=== PATIENT | male | born 1960 | race Caucasian/White ===

== ENCOUNTER → 2019-09-04 08:10 | Outpatient (CLI) | payer BC, SELFPAY ==
--- NOTE | ~2019-09-04 | MR_ITS ---
EXAMINATION: MR ankle LT wo con DATE: 09/04/2019 09:18 INDICATION: Left ankle pain. TECHNIQUE: Magnetic resonance imaging (MRI) of the left ankle was performed without intravenous contr ast. Sequences included axial, coronal, and sagittal PD-weighted FSE and STIR FSE. COMPARISON: None. FINDINGS: Medial ankle ligaments: There are changes of prior sprain of superficial component of the deltoid ligament characterized by t hickening and increased signal intensity. The deep component of the deltoid ligament is intact. Lateral ankle ligaments: There are changes of prior sprains of anterior talofibular ligament, anterior tibiofibular ligament, and calcaneofibular ligament characterized by thickening and increased signal intensity. Posterior ta lofibular ligament and posterior tibiofibular ligament are normal. Tendons: The medial and anterior ankle tendons are normal. The peroneal tendons and Achilles tendon are normal . Plantar fascia: There is thickening of central band of plantar fascia, consistent with fasciitis. There is an entheso phyte at the calcaneal attachment. Bones/other: Bone alignment is normal. There is plate and screw fixation of distal fibula. There is at least deep partial thickness cartilage loss in the medial ankle joint. There is severe osteoarthritis of talonav icular joint including full-thickness cartilage loss, subchondral edema-like marrow signal intensity, and osteophytes. Fluid: There is a small subtalar joint effusion. IMPRESSION: 1. Severe osteoarthritis of talonavicular joint and moderate chondrosis of tibiotalar joint. 2. Plantar fasciitis. 3. Changes of prior medial and lateral ankle sprains. Reviewed, dictated and finalized at location A. IMPRESSION: 1. Severe osteoarthritis of talonavicular joint and moderate chondrosis of tibi otalar joint. 2. Plantar fasciitis. 3. Changes of prior medial and lateral ankle sprains.
== END ==
PROVIDERS: PCP Family Medicine
DX: M19.072 Primary osteoarthritis, left ankle and foot (principal); M72.2 Plantar fascial fibromatosis
CPT/HCPCS: 73721

== ENCOUNTER 2019-12-20 08:06 | Outpatient (CLI) | payer BC, SELFPAY ==
--- NOTE | ~2019-12-20 | CT_ITS ---
EXAMINATION: CT abdomen pelvis wo con DATE: 12/20/2019 08:35 INDICATION: Left lower quadrant pain. Diverticulitis. TECHNIQUE: Computed tomography (CT) of the abdomen and pelvis was performed without intravenous contr ast. The dose-length product was 1365.65 mGy-cm. Automated exposure control and iterative reconstruct ion technique were employed. COMPARISON: None. FINDINGS: Lung bases are unremarkable. Heart size normal. No significant pleural or pericardial effus ion. The liver, spleen, pancreas, adrenal glands and right kidney are unremarkable. There is a 2 cm exophy tic left renal cyst. No hydronephrosis. Gallbladder is present. 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 There is mild thickening of the proximal sigmoid colon with surrounding inflammation and diverticu la, consistent with acute diverticulitis. No evidence for perforation or abscess. No free air or free fluid. There is atherosclerosis. No lymphadenopathy. Moderate lumbar spondylosis with grade 2 spondy lolisthesis at L5-S1 secondary to spondylolysis. IMPRESSION: 1. Acute uncomplicated diverticulitis proximal sigmoid colon. Reviewed, dictated and finalized at location B.
== END 2019-12-20 08:07 | disposition home or self-care (01) ==
PROVIDERS: PCP Family Medicine; Visit Provider Family Medicine
DX: R10.9 Unspecified abdominal pain (principal); K57.92 Diverticulitis of intestine, part unspecified, without perforation or abscess without bleeding
CPT/HCPCS: 74176

== ENCOUNTER 2021-04-02 08:44 | Outpatient (CLI) | payer BC, SELFPAY ==
--- NOTE | 2021-04-02 08:54 | ECHO_ITS ---
Patient Info Name: Krzysztof Tovar Age: 60 years : 1960 Gender: Male Ht: 76 in Wt: 270 lbs BSA: 2.59 m2 HR: 67 bpm BP: 132 / 84 mmHg Technical Quality: Fair Exam Date: 04/02/2021 8:58 AM Exam Location: [facility] Patient Status: Outpatient Admit Date: 04/02/2021 Staff Ordering Physician: Sukhdev Mtz MD Therapist Physical: Floridalma Ferguson RDCS Attending Provider: Sukhdev Mtz MD Referring Physician: Smith VICENTE; Exam Type: CA echo doppler color flow Study Info Indications R01.1 - Cardiac murmur, unspecified Complete two-dimensional, color flow and Doppler transthoracic echocardiogram is performed. Summary 1. Complete two-dimensional, color flow and Doppler transthoracic echocardiogram is performed. 2. Left ventricular chamber dimension is normal. 3. Left ventricular systolic function is normal, estimated at 60-65%. 4. There is mildly increased left ventricular wall thickness. 5. The left ventricular diastolic function is grade I diastolic dysfunction. 6. E/e' 5 is not elevated. 7. Left atrial chamber dimension is mildly enlarged. 8. The aortic valve is not well visualized. 9. There is severe aortic valve stenosis based on visual estimation. However, measurements show a peak velocity of 201 cm/s, mean gradient of 7 mmHg, and aortic valve area of 2.3 cm2. Recommend BHARATHI for further evaluation if clinically indicated. 10. There is severe aortic valve sclerosis. 11. There is mild aortic valve regurgitation. 12. No pulmonary hypertension, estimated pulmonary arterial systolic pressure is 27 mmHg. 13. The aortic root size at the sinus of Valsalva is mildly dilated at 4.3 cm. Left Ventricle E/e' 5 is not elevated. Left ventricular chamber dimension is normal. Left ventricular systolic function is normal, estimated at 60-65%. There is mildly increased left ventricular wall thickness. The left ventricular diastolic function is grade I diastolic dysfunction. Right Ventricle Right ventricular chamber dimension is normal. Right ventricular systolic function is normal. Left Atria Left atrial chamber dimension is mildly enlarged. Right Atria Right atrial chamber dimension is normal. Aortic Valve There is severe aortic valve stenosis based on visual estimation. However, measurements show a peak velocity of 201 cm/s, mean gradient of 7 mmHg, and aortic valve area of 2.3 cm2. Recommend BHARATHI for further evaluation if clinically indicated. The aortic valve is not well visualized. There is severe aortic valve sclerosis. There is mild aortic valve regurgitation. Pulmonic Valve There is no pulmonic regurgitation. Mitral Valve There is no mitral valve stenosis. There is no mitral valve regurgitation. Tricuspid Valve There is no tricuspid valve regurgitation. No pulmonary hypertension, estimated pulmonary arterial systolic pressure is 27 mmHg. Pericardium/Pleural There is no pericardial effusion. Inferior Vena Cava Normal inferior vena cava with >50% collapse upon inspiration consistent with normal right atrial pressure, 5 mmHg. Aorta The aortic root size at the sinus of Valsalva is mildly dilated at 4.3 cm. Left Ventricular Outflow Tract Name Value Normal LVOT 2D LVOT Di
== END 2021-04-02 08:45 | disposition home or self-care (01) ==
LOC: ANHCARD 08:44
PROVIDERS: PCP Family Medicine; Visit Provider Family Medicine
DX: R01.1 Cardiac murmur, unspecified (principal); I35.2 Nonrheumatic aortic (valve) stenosis with insufficiency
CPT/HCPCS: 93306

== ENCOUNTER 2021-08-03 01:43 | Day surgery (SDC) | payer BC, SELFPAY ==
[2021-08-02 15:32] VITALS: BMI 34.1
[2021-08-03] VITALS (25 sets, daily range): BP systolic 120–194; BP diastolic 77–123; PULSE 48–82; RESP 10–22; TEMP 36.2; O2SAT 95–99; BMI 34.1
--- NOTE | 2021-08-03 08:41 | WPDMODSED ---
Moderate Sedation Note-Pt Data Patient Data Allergies Allergy/AdvReac Type Severity Reaction Status Date / Time No Known Allergies Allergy Verified 08/03/21 07:32 Home Medications Medication Instructions Recorded Confirmed Type tramadol 50 mg tablet 50 mg PO Q6H PRN #60 tablet 11/10/20 08/03/21 Rx etodolac 500 mg tablet 500 mg PO BID #180 tablet 06/16/21 08/03/21 Rx zolpidem 5 mg tablet 5 mg PO .QHS #30 tablet 06/16/21 08/03/21 Rx cyclobenzaprine 10 mg PO HS 08/02/21 08/03/21 History ketorolac 1 drp OPHTHALMIC (EYE) TID 08/02/21 08/03/21 History metoprolol tartrate 25 mg PO BID 08/02/21 08/03/21 History ofloxacin 1 drp OPHTHALMIC (EYE) TID 08/02/21 08/03/21 History prednisolone acetate 1 drp OPHTHALMIC (EYE) TID 08/02/21 08/03/21 History Acidophilus-Pectin 10 mg PO DAILY 08/03/21 08/03/21 History Adults Multivitamin 1 tablet PO DAILY 08/03/21 08/03/21 History Glucosamine 400 mg PO TID 08/03/21 08/03/21 History [place] 3 1,000 mg PO DAILY 08/03/21 08/03/21 History acetaminophen 650 mg PO PRN 08/03/21 08/03/21 History cholecalciferol (vitamin D3) 5,000 unit PO DAILY 08/03/21 08/03/21 History coenzyme Q10 100 mg PO DAILY 08/03/21 08/03/21 History docusate sodium 100 mg PO BID 08/03/21 08/03/21 History hydrocodone-acetaminophen 10 - 352 mg PO PRN 08/03/21 08/03/21 History red yeast rice 600 mg PO DAILY 08/03/21 08/03/21 History selenium 200 mcg PO DAILY 08/03/21 08/03/21 History trace elements Cr-Cu-Mn-Zn 1 mcg PO DAILY 08/03/21 08/03/21 History tramadol 50 mg PO Q6H 08/03/21 08/03/21 History ftsquhn-nywx-clmpu-oreg-capryl 400 mg PO DAILY 08/03/21 08/03/21 History vitamin B complex 1 cap PO DAILY 08/03/21 08/03/21 History zolpidem 5 mg PO HS 08/03/21 08/03/21 History Current Medications: Active Medications Sodium Chloride (Normal Saline Iv) 500 mls @ 100 mls/hr IV CONT .Q5H [facility] Sedation/Anesthesia: No previous sedation/anesthesia problems (including family history). [facility] Past Medical History Medical History (Updated 07/14/21 @ 10:07 by Sukhdev Mtz MD) Arthrosis of ankle CAD (coronary artery disease) Obesity (BMI 30.0-34.9) Surgical History Surgical History (Updated 09/28/20 @ 10:04 by Sukhdev Mtz MD) H/O foot surgery Hx of arthrodesis Family History Family History Father Family history of malignant neoplasm of brain Social History Social History Smoking status: Never smoker Second hand tobacco smoke exposure: Yes Alcohol intake: current Drinks per week: 2 Alcohol use details: social use Living arrangements: with family Spiritual care concerns: No Mod Sed Physical Exam Physical Exam Pre Procedural Exam: Normal: Airway Hours since solid foods: 10 Hours since liquid intake: 10 Mallampati Classification: class II Internal Medicine - PN: Obj Da Vital Signs Vital Signs: Vital Signs - 24 hr 08/03/21 07:33 Temperature 36.2 C L Pulse Rate 58 L Respiratory Rate 12 Blood Pressure 152/98 H Pulse Oximetry 98 Meds/Results Medications: Active Medications Generic Name Dose Route Start Last Admin Trade Name Freq PRN Reason Stop Dose Admin Sodium Chloride 500 mls @ 100 mls/hr 08/03/21 07:00 Normal Saline Iv IV CONT .Q5H [facility] ASA Classification/Sedation ASA Classification/Sedation ASA Class: III Emergent: No Risks: Risks, benefits and alternatives explained and patient/family accepted plan for sedation. Patient re-evaluated immediately prior to sedation.
--- NOTE | 2021-08-03 08:41 | WPDHPUPDATE1 ---
History and Physical Update Update Date/Time: 08/03/21 08:41 History and Physical has been reviewed, including an updated exam of the patient. There are NO changes in the patient's condition. Risks, benefits, and alternatives have been discussed and questions answered. Patient agrees to proceed with procedure.
--- NOTE | 2021-08-03 10:10 | WPDCARDPROC ---
Cardiac Cath Procedure Note Date of procedure:: 08/03/21 Performing physician:: Calvin Pitt MD Procedure Procedure note:: CARDIAC CATHETERIZATION AND PERCUTANEOUS CORONARY INTERVENTION REPORT DATE OF PROCEDURE: 08/03/2021 INDICATION FOR PROCEDURE: chest pain, abnormal MPI BRIEF CLINICAL HISTORY: 61-year-old male with bicuspid aortic valve with mild stenosis based on previous BHARATHI, aortic root dilation, PVCs. Patient was referred for cardiac catheterization in the setting of exertional chest Pain and abnormal MPI. Patient's MPI from 07/12/2021 reportedly showed large fixed defect involving inferior and inferolateral truong consistent with prior LA; small amount of sergio-infarct ischemia, LVEF 43% with inferior wall hypokinesis. Benefits and risks of the procedure were discussed with the patient in depth, and informed consent was obtained prior to the procedure. Risks of the procedure include but are not limited to vascular complications including groin hematoma, retroperitoneal bleed, vessel perforation; periprocedural LA, cardiac arrhythmias, stroke, contrast induced nephropathy, and . After discussing all the benefits, risks and alternatives, patient was willing to proceed with the procedure. PROCEDURES PERFORMED: 1. Selective left and right coronary angiogram 2. IFR of LAD 3. Moderate sedation-CPT code 12824 MODERATE SEDATION: Midazolam 2 mg; fentanyl 50 mcg. Start time 0920 , Stop time 0958 ; Total wdir-jx-adbr time 38 minutes; Floridalma Tucker RN was trained observer for moderate sedation. ACCESS SITE: Right common femoral artery PROCEDURE NOTE: After obtaining informed consent, patient was brought to catheterization lab and prepped and draped in a usual sterile manner. After local anesthesia with lidocaine, right common femoral artery access was taken with micropuncture needle followed by insertion of a 5 [place] sheath. Due to aortic root dilation, there was difficulty in engaging the coronary arteries. After multiple catheters, selective left coronary angiogram was performed using 5 [place] JL 6 diagnostic catheter. Selective right coronary angiogram was performed using 5 [place] JR4 catheter . There was difficulty in advancing the wire through the stenotic bicuspid valve. IFR findings are described below. Patient tolerated procedure well without any immediate procedure related complications. FINDINGS: LEFT MAIN CORONARY: The left main coronary artery is a medium to large caliber vessel, no angiographically significant focal stenosis. LEFT ANTERIOR DESCENDING ARTERY: The LAD is a large caliber vessel in the proximal segment with diffuse mild irregularities; about 50-60% focal stenosis is seen in the proximal-mid segment; the mid segment has mild diffuse plaque. The vessel tapers distally and reaches LV apex. Diagonal branches are small caliber vessels. LEFT CIRCUMFLEX ARTERY: The LCX is the medium to large caliber, tortuous vessel with about 50% stenosis at the ostium. The mid segment is very tortuous with mild diffuse plaque. It gives rise to medium to large caliber OM branch. Afds-qg-pakmk collaterals are seen with supply terminal branches of the RCA. RIGHT CORONARY ARTERY: The right coronary artery has chronic total occlusion at the ostium with dense calcification seen in the proximal-mid segment on fluoroscopy; flyv-pq-sdjfb collaterals supply the distal branches. LEFT VENTRICULOGRAM: Not performed HEMODYNAMIC ASSESSMENT: Opening pressure 105/71 mmHg , closing pressure 105/60 mmHg. INTERVENTION REPORT: Patient's coronary angiogram showed intermediate decrease stenosis in the LAD, therefore, will proceed with a functional assessment. The 5 [place] sheath was exchanged with a 6 [place] sheath. Patient received bivalirudin for proceed anticoagulation. The IFR was performed using UClass IFR wire. The wire was zeroed outside the body, and was normalized in the left main-proximal LAD. The wire was adv
--- NOTE | 2021-08-03 19:11 | SUR.PHASEII ---
DC instructions provided to patient and spouse. Verbalized understanding. BP concerns addressed and pt verbalized understanding. IV DC. Site C/D/I.
== END 2021-08-03 07:25 | disposition home or self-care (01) ==
PROVIDERS: PCP Family Medicine; Visit Provider Internal Medicine Cardiovascular Disease
PROC: (CPT 93454; principal; 2021-08-03 08:30)
PROC: 4A033BC Measurement of Arterial Pressure, Coronary, Percutaneous Approach (ICD-10-PCS; CPT 93571; 2021-08-03 08:30)
DX: I25.10 Atherosclerotic heart disease of native coronary artery without angina pectoris (principal); R93.1 Abnormal findings on diagnostic imaging of heart and coronary circulation; R07.9 Chest pain, unspecified; Q23.1 Congenital insufficiency of aortic valve; I77.810 Thoracic aortic ectasia; I49.3 Ventricular premature depolarization; E66.9 Obesity, unspecified; Z68.34 Body mass index [BMI] 34.0-34.9, adult
CPT/HCPCS: 93454; 93571; C1769; C1887; C1894; J0583; J1644; J2250; J3010; J7030; J7040

== ENCOUNTER 2022-05-23 01:08 | Day surgery (SDC) | payer BC, SELFPAY ==
[2022-05-16 16:18] VITALS: BMI 36.2
--- NOTE | 2022-05-22 09:33 | WPDANESEPPF ---
Anes - Initial Pre Proc Eval Procedure: Operation Date: 05/23/22 11:00 Proposed Procedures p Screening Colonoscopy - Emery El MD Date/Time: 05/22/22 09:33 Surgeon: Emery El MD Pre Op Diagnosis: neoplasm screening Patient Data Age: 62 Gender: M Height: 1.93 m Weight: 135 kg Allergies Allergy/AdvReac Type Severity Reaction Status Date / Time No Known Allergies Allergy Verified 05/23/22 09:51 Home Medications Medication Instructions Recorded Confirmed Type tramadol 50 mg tablet 50 mg PO Q6H PRN pain #60 tabs 11/10/20 05/16/22 Rx cyclobenzaprine 10 mg tablet 10 mg PO HS 08/02/21 05/16/22 History Acidophilus-Pectin 10 mg PO DAILY 08/03/21 05/16/22 History Adults Multivitamin 1 tablet PO DAILY 08/03/21 05/16/22 History Glucosamine 400 mg PO TID 08/03/21 05/16/22 History [place] 3 1,000 mg PO DAILY 08/03/21 05/16/22 History acetaminophen 650 mg tablet 650 mg PO PRN 08/03/21 05/16/22 History aspirin 81 mg tablet,delayed 81 mg PO DAILY #90 tabs 08/03/21 05/16/22 Rx release cholecalciferol (vitamin D3) 5,000 unit PO DAILY 08/03/21 05/16/22 History coenzyme Q10 100 mg PO DAILY 08/03/21 05/16/22 History hydrocodone-acetaminophen 10 - 352 mg PO PRN 08/03/21 05/16/22 History rosuvastatin 40 mg tablet 40 mg PO HS #90 tabs 08/03/21 05/16/22 Rx selenium 200 mcg PO DAILY 08/03/21 05/16/22 History trace elements Cr-Cu-Mn-Zn 1 mcg PO DAILY 08/03/21 05/16/22 History ruccjcj-wgpb-jrckr-oreg-capryl 400 mg PO DAILY 08/03/21 05/16/22 History vitamin B complex 1 cap PO DAILY 08/03/21 05/16/22 History etodolac 500 mg tablet 500 mg PO BID #180 tabs 11/22/21 05/16/22 Rx metoprolol tartrate 50 mg tablet 50 mg PO BID 05/02/22 05/16/22 History clopidogrel 75 mg tablet 75 mg PO DAILY 05/16/22 05/16/22 History Patient hx anesthesia problems: none Family hx anesthesia problems: none Results Review: All pre-operative results and documents have been reviewed as part of the pre-operative evaluation. [facility] Past Medical History Medical History (Updated 05/23/22 @ 09:59 by Joseph Bingham MD) Arthrosis of ankle CAD (coronary artery disease) Essential (primary) hypertension Mixed hyperlipidemia Obesity (BMI 30.0-34.9) Surgical History Surgical History H/O foot surgery History of PTCA Hx of arthrodesis Family History Family History Father Family history of malignant neoplasm of brain Social History Social History (Updated 05/02/22 @ 08:36 by Arik Singh MA) Smoking status: Never smoker Second hand tobacco smoke exposure: Yes Alcohol intake: current Drinks per week: 3 Alcohol use details: social use Substance use type: does not use Lack of Transportation: No Lack of Food: Never True Current Housing: I Have Housing Concerned About Future Housing: No Difficulty Paying Gas/Electric Bills: No Difficulty Paying for Meds: No Education: Trade/Vocational Certificate Difficulty w/ Childcare or Family Care: No Living arrangements: with family Spiritual care concerns: No Anes - Eval Final PreProcedure Day of Procedure 05/22/22 09:33 Patient weight: obese Heart: regular rate and rhythm Lungs: clear to auscultation and normal air movement Airway: Mallampati scale class II Neurological: alert and oriented Last oral intake: >/= 8 hours ASA classification: III Emergent: no Anesthetic plan: proceed Anesthesia type and monitoring: general GIVS Results Review: All pre-operative results and documents have been reviewed as part of the pre-operative evaluation. Informed Consent: The patient's anesthetic plan and its attendant risks and benefits were discussed with the patient/family/POA. Questions were solicited and answers provided to the satisfaction of the patient/family/POA.
[2022-05-23 10:06] VITALS: BP 138/98; PULSE 80; RESP 20; TEMP 36; O2SAT 95
[2022-05-23] MEDS: LACTATED RINGERS 1,000 ML 150 ML IV CONT (10:16)
--- NOTE | 2022-05-23 10:29 | PM.HPGS ---
History of Present Illness History of Present Illness Consent: Risks, benefits, and alternatives have been discussed and questions answered. Patient agrees to proceed with procedure. Chief complaint: neoplasm screening Narrative: Krzysztof Tovar is a 62 year old male was referred for colon cancer screening. His last colonoscopy was 10 years ago and showed only diverticulosis. Review of Systems Review of Systems: All systems reviewed & are unremarkable except as noted in HPI and below PMFSH Past Medical History Medical History Arthrosis of ankle CAD (coronary artery disease) Essential (primary) hypertension Mixed hyperlipidemia Obesity (BMI 30.0-34.9) Surgical History Surgical History H/O foot surgery History of PTCA Hx of arthrodesis Family History Family History Father Family history of malignant neoplasm of brain Social History Social History Smoking status: Never smoker Second hand tobacco smoke exposure: Yes Alcohol intake: current Drinks per week: 3 Alcohol use details: social use Substance use type: does not use Lack of Transportation: No Lack of Food: Never True Current Housing: I Have Housing Concerned About Future Housing: No Difficulty Paying Gas/Electric Bills: No Difficulty Paying for Meds: No Education: Trade/Vocational Certificate Difficulty w/ Childcare or Family Care: No Living arrangements: with family Spiritual care concerns: No Meds Home Medications and Allergies Home Medications Medication Instructions Recorded Confirmed Type tramadol 50 mg tablet 50 mg PO Q6H PRN pain #60 tabs 11/10/20 05/23/22 Rx Acidophilus-Pectin 10 mg PO DAILY 08/03/21 05/23/22 History Adults Multivitamin 1 tablet PO DAILY 08/03/21 05/23/22 History Glucosamine 400 mg PO TID 08/03/21 05/23/22 History [place] 3 1,000 mg PO DAILY 08/03/21 05/23/22 History acetaminophen 650 mg tablet 650 mg PO PRN 08/03/21 05/23/22 History aspirin 81 mg tablet,delayed 81 mg PO DAILY #90 tabs 08/03/21 05/23/22 Rx release cholecalciferol (vitamin D3) 5,000 unit PO DAILY 08/03/21 05/23/22 History coenzyme Q10 100 mg PO DAILY 08/03/21 05/23/22 History hydrocodone-acetaminophen 10 - 352 mg PO PRN 08/03/21 05/23/22 History rosuvastatin 40 mg tablet 40 mg PO HS #90 tabs 08/03/21 05/23/22 Rx selenium 200 mcg PO DAILY 08/03/21 05/23/22 History trace elements Cr-Cu-Mn-Zn 1 mcg PO DAILY 08/03/21 05/23/22 History vcqsbpd-edim-rcdiz-oreg-capryl 400 mg PO DAILY 08/03/21 05/23/22 History vitamin B complex 1 cap PO DAILY 08/03/21 05/23/22 History etodolac 500 mg tablet 500 mg PO BID #180 tabs 11/22/21 05/23/22 Rx metoprolol tartrate 50 mg tablet 50 mg PO BID 05/02/22 05/23/22 History clopidogrel 75 mg tablet 75 mg PO DAILY 05/16/22 05/23/22 History cyclobenzaprine 10 mg tablet See Rx Instructions .Route 05/24/22 Rx .COMPLEX #90 tabs Allergies Allergy/AdvReac Type Severity Reaction Status Date / Time No Known Allergies Allergy Verified 05/23/22 09:51 Vital Signs Vital Signs - 24 hr 05/23/22 10:06 Temperature 36.0 C L Pulse Rate 80 Respiratory Rate 20 Blood Pressure 138/98 H Pulse Oximetry 95 Oxygen Delivery Room Air Exam Resp: Auscultation: clear to auscultation bilaterally Cardio: Rate: regular rate Rhythm: regular rhythm GI: GI Palp: Yes Soft to palpation and No Tenderness to palpation present (GI) Assessment and Plan Assessment and plan (1) Screening for colon cancer: Code(s): Z12.11 - Encounter for screening for malignant neoplasm of colon Status: Acute Assessment and Plan: Colonoscopy with possible biopsy or polypectomy or cautery or injection of substances.
[2022-05-23 11:33] VITALS: BP 125/80; PULSE 55; RESP 13; O2SAT 91
[2022-05-23 11:43] VITALS: BP 119/87; PULSE 59; RESP 19; O2SAT 94
[2022-05-23 11:53] VITALS: BP 130/85; PULSE 56; RESP 20; O2SAT 96
== END 2022-05-23 12:01 | disposition home or self-care (01) ==
PROVIDERS: PCP Family Medicine; Visit Provider Internal Medicine Gastroenterology
PROC: 0DJD8ZZ Inspection of Lower Intestinal Tract, Via Natural or Artificial Opening Endoscopic (ICD-10-PCS; CPT 45378; principal; 2022-05-23 11:00)
DX: Z12.11 Encounter for screening for malignant neoplasm of colon (principal); K64.8 Other hemorrhoids; K57.30 Diverticulosis of large intestine without perforation or abscess without bleeding; I25.10 Atherosclerotic heart disease of native coronary artery without angina pectoris; I10 Essential (primary) hypertension; E78.2 Mixed hyperlipidemia; Z79.02 Long term (current) use of antithrombotics/antiplatelets; E66.9 Obesity, unspecified; Z68.36 Body mass index [BMI] 36.0-36.9, adult
CPT/HCPCS: 45378; J2001; J2704; J7120

== ENCOUNTER 2022-07-22 09:56 | Emergency (ER) | payer BC, SELFPAY ==
[2022-07-22 10:13] VITALS: BP 153/109; PULSE 62; RESP 18; TEMP 36.7; O2SAT 97
--- NOTE | 2022-07-22 10:30 | ED.URI ---
HPI - URI/Sore Throat General Chief Complaint: Upper Respiratory Infection Stated Complaint: cough Time Seen by Provider: 07/22/22 10:18 Source: patient Mode of arrival: ambulatory Limitations: no limitations History of Present Illness HPI Narrative: Patient presents today complaining of a 3 week history productive cough with yellow/green sputum, occasional shortness of breath with exertion. He called his PCPs office at the end of June and was told to take [id number]-[id number] medication. Symptoms have been waxing and waning since that time. Denies history of COPD or asthma. He is a nonsmoker. 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 Related Data Home Medications Medication Instructions Recorded Confirmed Acidophilus-Pectin 10 mg PO DAILY 08/03/21 07/22/22 Adults Multivitamin 1 tablet PO DAILY 08/03/21 07/22/22 Glucosamine 400 mg PO TID 08/03/21 07/22/22 [place] 3 1,000 mg PO DAILY 08/03/21 07/22/22 acetaminophen 650 mg tablet 650 mg PO PRN 08/03/21 07/22/22 cholecalciferol (vitamin D3) 5,000 unit PO DAILY 08/03/21 07/22/22 coenzyme Q10 100 mg PO DAILY 08/03/21 07/22/22 hydrocodone-acetaminophen 10 - 352 mg PO PRN 08/03/21 07/22/22 selenium 200 mcg PO DAILY 08/03/21 07/22/22 trace elements Cr-Cu-Mn-Zn 1 mcg PO DAILY 08/03/21 07/22/22 czkgcrg-jfhh-ujcux-oreg-capryl 400 mg PO DAILY 08/03/21 07/22/22 vitamin B complex 1 cap PO DAILY 08/03/21 07/22/22 metoprolol tartrate 50 mg tablet 50 mg PO BID 05/02/22 07/22/22 clopidogrel 75 mg tablet 75 mg PO DAILY 05/16/22 07/22/22 Allergies Allergy/AdvReac Type Severity Reaction Status Date / Time No Known Allergies Allergy Verified 07/22/22 10:12 Review of Systems Review of Systems: CONSTITUTIONAL: Denies body aches, fever, chills, or sweats. EYES: Denies visual changes, redness, or discharge. ENT: Denies rhinorrhea, congestion, sore throat, or otalgia. CARDIOVASCULAR: Denies chest pain, palpitations, or edema. RESPIRATORY:+ cough, shortness of breath GASTROINTESTINAL: Denies abdominal pain, nausea, vomiting, or diarrhea. GENITOURINARY: Denies dysuria or hematuria. SKIN: Denies rash, itching, or wounds. MUSCULOSKELETAL: Denies back pain, joint pain, or myalgia. NEUROLOGIC: Denies headache, numbness, tingling, or weakness. PSYCH: Denies depression or anxiety. [facility] Past Medical History Medical History Arthrosis of ankle CAD (coronary artery disease) Essential (primary) hypertension Mixed hyperlipidemia Obesity (BMI 30.0-34.9) Surgical History Surgical History H/O foot surgery History of PTCA Hx of arthrodesis Family History Family History Father Family history of malignant neoplasm of brain Social History Social History Smoking status: Never smoker Second hand tobacco smoke exposure: Yes Alcohol intake: current Drinks per week: 3 Alcohol use details: social use Substance use type: does not use Lack of Transportation: No Lack of Food: Never True Current Housing: I Have Housing Concerned About Future Housing: No Difficulty Paying Gas/Electric Bills: No Difficulty Paying for Meds: No Education: Trade/Vocational Certificate Difficulty w/ Childcare or Family Care: No Living arrangements: with family Spiritual care concerns: No Comments At time of signature, I have reviewed and agree with nursing past medical, surgical, social and family history unless otherwise noted. Please see nursing chart for further information. There is no relevant family history pertinent to the presenting complaint Exam Narrative: GENERAL: Well-appearing, well-nourished, and in no acute distress. HEAD: Normocephalic, atraumatic. EYES: EOMI. No redness or drainage. Conjunctivae normal. ENT: Mucous membranes pink and moist. Nares
== END 2022-07-22 10:42 | disposition home or self-care (01) ==
PROVIDERS: Emergency Provider Nurse Practitioner
DX: J40 Bronchitis, not specified as acute or chronic (principal); J06.9 Acute upper respiratory infection, unspecified; I25.10 Atherosclerotic heart disease of native coronary artery without angina pectoris; I10 Essential (primary) hypertension; E78.2 Mixed hyperlipidemia
CPT/HCPCS: 99213; G0463

== ENCOUNTER 2022-08-17 10:00 | Emergency (ER) | payer BC, SELFPAY ==
--- NOTE | 2022-08-17 10:05 | ED.URI ---
HPI - URI/Sore Throat General Chief Complaint: Upper Respiratory Infection Stated Complaint: Sinus Time Seen by Provider: 08/17/22 10:05 Source: patient Mode of arrival: ambulatory Limitations: no limitations History of Present Illness HPI Narrative: Krzysztof is a 8-year-old male patient presenting to clinic today with complaints of sinus congestion times to the 3 weeks. He reports he was seen here several weeks ago and was given prescription for azithromycin and prednisone for bronchitis. He reports that he took that and was feeling better but 4 days after finishing up the treatment he started to get worse again. He reports that he is bringing up some greenish yellow discharge and is having sinus pressure. He thinks he may have had a slight fever on Monday. MD elicited complaint: fever, cough, nasal congestion and sinus pain Related Data Home Medications Medication Instructions Recorded Confirmed Acidophilus-Pectin 10 mg PO DAILY 08/03/21 07/22/22 Adults Multivitamin 1 tablet PO DAILY 08/03/21 07/22/22 Glucosamine 400 mg PO TID 08/03/21 07/22/22 [place] 3 1,000 mg PO DAILY 08/03/21 07/22/22 acetaminophen 650 mg tablet 650 mg PO PRN 08/03/21 07/22/22 cholecalciferol (vitamin D3) 5,000 unit PO DAILY 08/03/21 07/22/22 coenzyme Q10 100 mg PO DAILY 08/03/21 07/22/22 hydrocodone-acetaminophen 10 - 352 mg PO PRN 08/03/21 07/22/22 selenium 200 mcg PO DAILY 08/03/21 07/22/22 trace elements Cr-Cu-Mn-Zn 1 mcg PO DAILY 08/03/21 07/22/22 uvqbegj-vlsd-tscxx-oreg-capryl 400 mg PO DAILY 08/03/21 07/22/22 vitamin B complex 1 cap PO DAILY 08/03/21 07/22/22 metoprolol tartrate 50 mg tablet 50 mg PO BID 05/02/22 07/22/22 clopidogrel 75 mg tablet 75 mg PO DAILY 05/16/22 07/22/22 Allergies Allergy/AdvReac Type Severity Reaction Status Date / Time No Known Allergies Allergy Verified 07/22/22 10:12 Review of Systems Review of Systems: Pertinent positives per HPI. Patient denies any fever, chills, rash, headache, visual changes, dizziness, cough, shortness of breath, chest pain, palpitations, nausea, vomiting, diarrhea, constipation, abdominal pain, or any urinary issues. [facility] Past Medical History Medical History Arthrosis of ankle CAD (coronary artery disease) Essential (primary) hypertension Mixed hyperlipidemia Obesity (BMI 30.0-34.9) Surgical History Surgical History H/O foot surgery History of PTCA Hx of arthrodesis Family History Family History Father Family history of malignant neoplasm of brain Social History Social History Smoking status: Never smoker Second hand tobacco smoke exposure: Yes Alcohol intake: current Drinks per week: 3 Alcohol use details: social use Substance use type: does not use Lack of Transportation: No Lack of Food: Never True Current Housing: I Have Housing Concerned About Future Housing: No Difficulty Paying Gas/Electric Bills: No Difficulty Paying for Meds: No Education: Trade/Vocational Certificate Difficulty w/ Childcare or Family Care: No Living arrangements: with family Spiritual care concerns: No Comments At the time of my signature, I reviewed and agree with the nursing past medical, surgical, social, and family history. There is no relevant family history pertinent to the patient complaint. Exam Narrative: General: Well-developed, obese, in no apparent distress Head: Normocephalic, atraumatic Eyes: Pupils equally round and reactive to light bilaterally, EOM intact, sclera and conjunctive clear, no discharge, lids normal Ears: TMs intact and clear, ear canals clear, no drainage, grossly hearing normal. Nose: Nares patent, yellow nasal discharge, moderate inflammation, maxillary sinus tenderness. Mouth: Oral
[2022-08-17 10:08] VITALS: BP 137/91; PULSE 71; RESP 16; TEMP 35.9; O2SAT 97
== END 2022-08-17 10:19 | disposition home or self-care (01) ==
PROVIDERS: Emergency Provider Nurse Practitioner Family; PCP Family Medicine
DX: J01.00 Acute maxillary sinusitis, unspecified (principal); I25.10 Atherosclerotic heart disease of native coronary artery without angina pectoris; E78.2 Mixed hyperlipidemia; I10 Essential (primary) hypertension
CPT/HCPCS: 99213; G0463

== ENCOUNTER 2024-03-19 07:34 | Outpatient (CLI) | payer BC, SELFPAY ==
--- NOTE | ~2024-03-19 | PE_ITS ---
EXAMINATION: PET skull to mid thigh DATE: 03/19/2024 12:09 INDICATION: 11 mm left lower lobe pulmonary nodule TECHNIQUE: Blood glucose level was not included on the provided documentation. 9.157 mCi of 18-fluoro deoxyglucose (18-FDG) was administered i.v. Low dose computed tomography (CT) images were acquired fr om the base of the brain to the proximal thighs for attenuation correction and anatomic localization. Positron emission tomography (PET) images were acquired in the same distribution beginning 59 minute s after injection. Images including fused PET/CT images were reconstructed in axial, coronal, and sag ittal planes. Automated exposure control technique was employed. The dose-length product was 1810.61m Gy-cm. COMPARISON: CT dated 12/20/2019 FINDINGS: Head/neck: There is symmetric increased activity in the oral and nasal cavities, laryngeal muscles and ocular mu scles without CT correlate, likely physiologic. No pathologically enlarged cervical lymphadenopathy o r suspicious foci of increased FDG uptake in the visualized head or neck. Chest: No abnormal FDG uptake associated with a 12 x 9 mm nodule in the paramediastinal superior segment of the left lower lobe. No other suspicious pulmonary nodules, pneumonia, pulmonary edema or pleural eff usion. Mild cardiomegaly. Atherosclerotic coronary artery calcification is at and aortic valve calcif ication. No pericardial effusion. Ascending thoracic aortic aneurysm measuring up to 5.0 x 4.8 cm. No pathologically enlarged or FDG avid thoracic lymphadenopathy. Small sliding-type hiatal hernia with small focus of mild FDG uptake with maximal SUV of 4.8 at the gastroesophageal junction which is with out radiologic correlate. Abdomen/pelvis/proximal thighs: Physiologic renal accumulation and excretion of FDG activity in the kidneys, bladder and along portio ns of ureters. Assessment of the region of the bladder and prostate is however limited by dense metal lic streak artifact associated with bilateral total hip arthroplasties. Photopenic defect associated with a 2.4 cm exophytic cyst at the posterior left kidney which is without significant interval friend e since prior CT. Normal degree and heterogenous pattern of increased uptake throughout the liver wit hout radiologic correlate or dominant FDG avid lesion. The gallbladder, pancreas, spleen and bilatera l adrenal glands are normal. Mild uptake scattered throughout the bowels without radiologic correlate , also likely physiologic. There are numerous colonic diverticula without adjacent comparison to sugg est diverticulitis. Normal appendix. No other abnormal foci of increased FDG uptake or pathologically enlarged lymphadenopathy in the abdomen, pelvis or proximal thighs. Musculoskeletal: Severe lumbar spondylosis with L5 spondylolysis including bilateral pars interarticularis defects and 9 mm anterolisthesis of L5 on S1. There are postoperative changes the bilateral shoulders with sutur e anchors at the left humeral head suggesting prior rotator cuff repair and lucent tract at the cepha lad aspect of the intertubercular groove at the right humeral head suggesting prior bicipital tenodes is. Correlate with surgical history. No suspicious lytic, blastic or abnormally FDG avid bone lesions . IMPRESSION: 1. No abnormal FDG uptake associated with a 12 x 9 mm nodule superior segment left lower lobe. While reassuring would recommend continued follow-up with low-dose noncontrast chest CT in 6 months with co mparison at that time to prior outside imaging. 2. Small sliding-type hiatal hernia with small focus of mild increased uptake at the gastroesophageal junction without radiologic correlate. Differential would include infection, inflammation such as in the setting of reflux or metaplasia/neoplasia. Would consider endoscopy for further evaluation. Reviewed, dictated a
[2024-03-19 08:11] LABS: Glucose Point of Care 26 mg/dl (65-105)
[2024-03-19 08:11] LABS: Glucose Point of Care 101 mg/dl (65-105)
[2024-03-19 08:14] LABS: Glucose Point of Care 23 mg/dl (65-105)
== END 2024-03-19 07:35 | disposition home or self-care (01) ==
LOC: ANHIMG 07:37
PROVIDERS: PCP Family Medicine; Visit Provider Family Medicine
DX: R91.1 Solitary pulmonary nodule (principal); K44.9 Diaphragmatic hernia without obstruction or gangrene
CPT/HCPCS: 78815; A9552

== ENCOUNTER 2024-10-03 07:44 | Outpatient (CLI) | payer BC, SELFPAY ==
--- NOTE | ~2024-10-03 | CT_ITS ---
CT Scan of the Chest without Contrast: Clinical Indication: Pulmonary nodule Technique: Contiguous sections were acquired throughout the chest without intravenous contrast. Dose reduction technique was used on this scan by utilizing automated exposure control and iterative recon struction technique. The dose-length product (DLP) was 508.72 mGy-cm. COMPARISON: 03/19/2024 Findings: There is no evidence of any significant mediastinal, hilar or axillary lymphadenopathy. Coronary amber ry calcifications are present. There is no evidence of pleural or pericardial effusion. 1.2 x 0.9 cm left lower lobe pulmonary nodule present, adjacent to the descending thoracic aorta, pro bable amorphous central calcification. No other significant pulmonary abnormality. Images through the upper abdomen reveal no abnormalities. Impression: Stable 1.2 x 0.9 cm left lower lobe pulmonary nodule, most likely granuloma with central calcificatio n. Reviewed, dictated and finalized at [facility]. Impression: Stable 1.2 x 0.9 cm left lower lobe pulmonary nodule, most likely granuloma wit h central calcification.
--- OUTSIDE RECORDS SUMMARY | 2024-10-03 07:49 | XMS_ITS | Encounter Summary ---
Author Organization [facility] Address 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 Gender Identity Not on file Sexual Orientation Not on file documented as of this encounter Plan of Treatment Not on file documented as of this encounter Procedures Procedure Name Priority Date/Time Associated Diagnosis Comments PROTIME-INR Routine 06/12/2008 5:30 AM HOSPICE SUPERINTENDENT HEMOGLOBIN AND HEMATOCRIT Routine 06/11/2008 5:00 AM HOSPICE SUPERINTENDENT PROTIME-INR Routine 06/11/2008 5:00 AM HOSPICE SUPERINTENDENT HEMOGLOBIN AND HEMATOCRIT Routine 06/10/2008 4:40 AM HOSPICE SUPERINTENDENT PROTIME-INR Routine 06/10/2008 4:40 AM HOSPICE SUPERINTENDENT XR HIP 1 VW RIGHT Stat 06/09/2008 11: 50 AM HOSPICE SUPERINTENDENT HEMOGLOBIN AND HEMATOCRIT Routine 05/26/2008 10:16 AM HOSPICE SUPERINTENDENT TYPE AND CROSSMATCH Routine 05/26/2008 1 0:14 AM HOSPICE SUPERINTENDENT documented in this encounter Results * (ABNORMAL) PROTIME-INR (06/12/2008 5:30 AM HOSPICE SUPERINTENDENT) INR 1.3(H) 0.9 - 1.1 [facility] Comment: INR Therapeutic Range: Adult: 2.0 - 3.0 for pulmonary embolism or prophylaxis against venous thrombosis or systemic embolization. 2.0 - 3.0 for patients with tissue heart valves. 2.5 - 3.5 for patients with mechanical heart valves or post CA. Pediatric (12 years and under): 1.5 - 3.0 Although the target range in children is not well established, INR values of 1.5 - 3.0 are recommended for most patients. Higher values have been used in children with prosthetic cardiac valves and hereditary clotting disorders. [place] (<3 days) therapeutic ranges have not been established. PROTIME 16.4(H) 12.7 - 15.1 Seconds [facility] Blood specimen (specimen) 06/12/2008 5:30 AM HOSPICE SUPERINTENDENT 06/12/2008 6:13 AM HOSPICE SUPERINTENDENT us Nanette German MD HEMATOLOGY ORDERABLES Final Resu lt INTERFACE SYSTEM Refer to clinic/hospital department [facility] CLIA# [id number] [address] [facility] [place] [address] * PROTIME-INR (06/11/2008 5:00 AM HOSPICE SUPERINTENDENT) PROTIME 14.3 12.7 - 15.1 Seconds [facility] INR 1.1 0.9 - 1.1 [facility] Comment: ansiINR Therapeutic Range: Adult: 2.0 - 3.0 for pulmonary embolism or prophylaxis against venous thrombosis or systemic embolization. 2.0 - 3.0 for patients with tissue heart valves. 2.5 - 3.5 for patients with mechanical heart valves or post CA. Pediatric (12 years and under): 1.5 - 3.0 Although the target range in children is not well established, INR values of 1.5 - 3.0 are recommended for most patients. Higher values have been used in children with prosthetic cardiac valves and hereditary clotting disorders. [place] (<3 days) therapeutic ranges have not been established. Blood specimen (specimen) 06/11/2008 5:00 AM HOSPICE SUPERINTENDENT 06/11/2008 5:29 AM HOSPICE SUPERINTENDENT Nanette German MD HEMATOLOGY ORDERABLES Final Resu lt Performing Organization Address [facility] Phone Number INTERFACE SYSTEM Refer to clinic/hospital department [facility] CLIA# [id number] [address] [place] [address] * (ABNORMAL) HEMOGLOBIN AND HEMATOCRIT (06/11/2008 5:00 AM HOSPICE SUPERINTENDENT) HEMOGLOBIN 11.2(L) 13.6 - 16.5 g/dL [facility] HEMATOCRIT 32.6(L) 40.0 - 48.0 % [facility] Blood specimen (specimen) 06/11/2008 5:00 AM HOSPICE SUPERINTENDENT 06/11/2008 5:29 AM HOSPICE SUPERINTENDENT Nanette German MD HEMATOLOGY ORDERABLES Final Resu lt Performing Organization Address [facility] de Phone Number INTERFACE SYSTEM Refer to clinic/hospital department [facility] CLIA# [id number] [address] [place] [address] * PROTIME-INR (06/10/2008 4:40 AM HOSPICE SUPERINTENDENT) INR 1.1 0.9 - 1.1 [facility] Comment: INR Therapeutic Range: Adult: 2.0 - 3.0 for pulmonary embolism or prophylaxis against venous thrombosis or systemic embolization. 2.0 - 3.0 for patients with tissue heart valves. 2.5 - 3.5 for patients with mechanical heart valves or post CA. Pediatric (12 years and under): 1.5 - 3.0 Although the target range in children is not well established, INR values of 1.5 - 3.0 are recommended for most patients. Higher values have been used in children with prosthetic cardiac valves and hereditary clotting disorders. [place] (<3 days) therapeutic ranges have not been established. PROTIME 14.5 12.7 - 15.1 Seconds [facility] Blood specimen (specimen) 06/10/2008 4:40 AM HOSPICE SUPERINTENDENT 06/10/2008 5:47 AM HOSPICE SUPERINTENDENT Nanette German MD HEMATOLOGY ORDERABLES Final Resu lt Performing Organization Address [facility] Phone Number INTERFACE SYSTEM Refer to clinic/hospital department [facility] CLIA# [id number] [address] [place] [address] * (ABNORMAL) HEMOGLOBIN AND HEMATOCRIT (06/10/2008 4:40 AM HOSPICE SUPERINTENDENT) HEMOGLOBIN 11.3(L) 13.6 - 16.5 g/dL [facility] HEMATOCRIT 32.3(L) 40.0 - 48.0 % [facility] Blood specimen (specimen) 06/10/2008 4:40 AM HOSPICE SUPERINTENDENT 06/10/2008 5:47 AM HOSPICE SUPERINTENDENT Nanette German MD HEMATOLOGY ORDERABLES Final Resu lt Performing Organization Address [facility] de Phone Number INTERFACE SYSTEM Refer to clinic/hospital department [facility] CLIA# [id number] [address] [place] [address] * XR HIP 1 VW RIGHT (06/09/2008 11:50 AM HOSPICE SUPERINTENDENT) Anatomical Region Laterality Modality Lower Extremity Right Other 06/09/2008 11:5 0 AM HOSPICE SUPERINTENDENT Narrative 06/09/2008 1:15 PM HOSPICE SUPERINTENDENT [address] [address] Admit Date: 06/09/2008 KELLI TOVAR Sex: M Admit Prov: NANETTE GERMAN Date: 1960 Primary Care Prov: ZARA GALVAN CMRN: [id number] Room: [address] [place] [address] SSN: [id number] IMAGING SERVICES Ordering Prov: N/A Accession Number: [id number] Interpretation Right hip one view 06/09/2008 History: Postop. Findings: The total right hip replacement is evident. No acute fracture is visualized. . Dictated by: SARAHY LUNA 06/09/2008 13:13 Electronically signed by: SARAHY LUNA 06/09/2008 13:14 Procedure Note Sarahy Luna - 06/09/[address] [place], [place] [address] Admit Date: 06/09/2008 KELLI TOVAR Sex: M Admit Prov: NANETTE GERMAN Date: 1960 Primary Care Prov: ZARA GALVAN CMRN: [id number] Room: [address] [place] [address] SSN: [id number] IMAGING SERVICES Ordering Prov: N/A Interpretation Right hip one view 06/09/2008 History: Postop. Findings: The total right hip replacement is evident. No acutefracture is visualized. . Dictated by: SARAHY LUNA 06/09/2008 13:13 Electronically signed by: SARAHY LUNA 06/09/2008 13:14 us Nanette German MD DIAGNOSTIC IMAGING ORDERABLES Fi nal Result * HEMOGLOBIN AND HEMATOCRIT (05/26/2008 10:16 AM HOSPICE SUPERINTENDENT) HEMOGLOBIN 14.1 13.6 - 16.5 g/dL [facility] HEMATOCRIT 40.1 40.0 - 48.0 % [facility] Blood specimen (specimen) 05/26/2008 10:16 AM HOSPICE SUPERINTENDENT 05/26/2008 11:03 AM HOSPICE SUPERINTENDENT Result [facility] us Nanette German MD HEMATOLOGY ORDERABLES Final Resu lt Performing Organization Address [facility] de Phone Number INTERFACE SYSTEM Refer to clinic/hospital department [facility] CLIA# [id number] [address] [place] [address] * TYPE AND CROSSMATCH (05/26/2008 10:14 AM HOSPICE SUPERINTENDENT) SPECIMEN LIFE 3 days from OR date [facility] HISTORY CHECK History Checked [facility] ABO/RH TYPE O Negative [facility] ANTIBODY SCREEN Negative [facility] Blood specimen (specimen) 05/26/2008 10:14 AM HOSPICE SUPERINTENDENT Result [facility] Nanette German MD BLOOD BANK ORDERABLES Edited Performing Organization Address [facility] Phone Number INTERFACE SYSTEM Refer to clinic/hospital department [facility] CLIA# [id number] [address] [place] [address] documented in this encounter Visit Diagnoses Diagnosis Osteoarthrosis, unspecified whether generalized or localized, pelvic region and thigh documented in this encounter Care Teams Office Clerk Relationship Specialty Start Date End Date Itzel Cook MD [address] [phone] PCP - General 05/22/15 documented as of this encounter
--- OUTSIDE RECORDS SUMMARY | 2024-10-03 07:49 | XMS_ITS | Encounter Summary ---
Author Organization [facility] Address 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
--- OUTSIDE RECORDS SUMMARY | 2024-10-03 07:49 | XMS_ITS | Continuity of Care Document ---
Author Organization [facility] Address [address] [place] [address] Phone Care Team Providers Care Transportation Dispatch Manager Name Role Phone Charlie German MD Unavailable Unavailable Allergies, Adverse Reactions, Alerts Substance Reaction Status Criticality No Known Allergies Active No Inform ation Medications Medication Instructions Dosage Effective Dates (start - stop) Status Comments etodolac 500 mg tablet take 1 tablet by oral route 3 times every day with food 500 MG - Active CYMBALTA (unknown strength) Not Available - Active Procedures Procedure Date OFFICE/OUTPATIENT VISIT EST OFFICE/OUTPATIENT VISIT EST OFFICE/OUTPATIENT VISIT EST OFFICE/OUTPATIENT VISIT EST OFFICE/OUTPATIENT VISIT EST POSTOP FOLLOW-UP VISIT POSTOP FOLLOW-UP VISIT POSTOP FOLLOW-UP VISIT POSTOP FOLLOW-UP VISIT Advance Directives Directive Yes / No Effective Date File Name No Information Encounters Encounter Description Practice Location Reason(s) For Visit Diagnoses Date Provider Providers Copied on Encounter OFFICE/OUTPA TIENT VISIT EST [facility], [address], [place], [address], [place] [phone] [facility] D[facility]ry LEFT ANKLE (chief complaint) Arthrosis of left midfootBody mass index (BMI) 35.0-35.9, adult 8 Monserrat Guerra. [address] [place], [place], [id number] . tel: [phone] Referring Provider: Sukhdev Mccollum, [address] [place], [place], [address] . tel:[phone] OFFICE/OUTPA TIENT VISIT [facility], [address] [place] [address], [address], [place] [phone] [facility] Follow Up of LEFT SHOULDER (chief complaint) Body mass index (BMI) 34.0-34.9, adultShoulder bursitis, left Feb-2 7 Shoe Lidia. [address] [facility] [address], [place], [place], [id number] . tel: [phone] Referring Provider: Itzel Land, [address], [place], [address] . tel:[phone] OFFICE/OUTPA TIENT VISIT [facility], [address] [place] [address], [address], [place] [phone] [facility] Follow Up of ALEX SHOULDER PAIN (chief complaint) Shoulder bursitis, rightShoulder bursitis, left May- 5 Shoe Lidia. [address] [facility] [address], [place], [place], [id number] . tel: [phone] OFFICE/OUTPA TIENT VISIT [facility], [address] [place] [address], [address], [place] [phone] [facility] f/u bilateral shoulders (chief complaint) Bursitis of shoulder Aug- 0- 5 Monserrat Guerra. [address] [place] [address], [id number] . tel: [phone] OFFICE/OUTPA TIENT VISIT [facility], [address] [place] [address], [address], [place] tel:[phone] [facility] Osteoarthrosis, localized, not specified whether primary or secondary, involving shoulder regionRotator cuff (capsule) sprain May-0 3 Shoe Lidia. [address] [facility] [address], [place], [place], [id number] . tel: [phone] [facility], [address] [place] [address], [address], tel:[phone] [facility] [place] Rotator cuff (capsule) sprain 3 Monserrat Guerra. [address] [place], [place], [id number] . tel: [phone] [facility], [address] [place] [address], [address], tel:[phone] [facility] Osteoarthrosis, localized, not specified whether primary or secondary, involving shoulder regionRotator cuff (capsule) sprain 3 Gloria Murillo. [address] [place] [address] [address], [place], [place], [id number] . tel: [phone] [facility], [address] [place] [address], [address], tel:[phone] [facility] Right shoulder scope and rotator cuff repair 12/24/12 (chief complaint) Other affections of shoulder region, not elsewhere classifiedRotat or cuff (capsule) sprain 3 Gloria Murillo. [address] [place] [address] [address], [place], [place], [id number] . tel: [phone] [facility], [address] [place] [address], [address], tel:[phone] [facility] right rtc repair (chief complaint) Strain of rotator cuffLocalized osteoarthrosis, shoulder regionImpingeme nt syndrome of left shoulder 3 Monserrat Guerra. [address] [place] [address], [id number] . tel: [phone] Family History Family Member Type Diagnosis Age At Onset Daughter Problem (finding) Alive and well Father Problem (finding) Cancer, brain (Cause Of ) Payers Payer name Insurance type Covered constitution party ID Authorlyndaa moikylie(s) Alyssana Open Access Plus E2 OT [id number] Social History Type Description Quantity Date Captured Comments Alcohol Use Details Unknown Caffeine Use Details Unknown Tobacco Use Status Never smoked tobacco 2017 Smoking Status Never smoker Non-Smoking Tobacco Use Details : No Details Available : No Details Available Sex Male Vital Signs Date / Time: Height Weight BMI Pulse Rate Blood Pressure Temperature Respiratory Rate Body Surface Area Head Circumference Head Circ. Percentile Wt./Sunny. Percentile BMI percentile Pulse Ox Inhaled Ox 6:57 PM 76.00 in 131.542 kg (290.00 lbs) 35.3 0 kg/m eter (2) 151/103 mm[Hg] Chief Complaint And Reason For Visit From encounter dated '12/21/2017 16:30'. LEFT ANKLE (chief complaint) Reason For Referral Reason For Referral No Information Plan Of Treatment Date Type Action Status Referral Ordered: RADEX ANKLE COMPL MINIMUM 3 VIEWS LT ordered Referral Ordered: RADEX JEFERSON COMPL MINIMUM 2 VIEWS LT ordered Referral Ordered: RADEX JEFERSON COMPL MINIMUM 2 VIEWS Bilateral ordered History Of Present Illness Encounter Date Complaint History Of Prese nt Illness LEFT ANKLE Follow Up of LEFT SHOULDER Follow Up of ALEX SHOULDER PAIN f/u bilateral shoulders Functional Status Date Functional Assessmen t No Information Instructions Date Instruction Additional Infor mation activity as tolerated Related to Arthrosis of left midfoot apply heating pad or ice as tole rated Related to Arthrosis of left midfoot home exercise program Related to Arthrosis of left midfoot Weight monitoring Related to Bod y mass index (BMI) 35.0-35.9, adult Elevate extremity above heart. R elated to Shoulder bursitis, left Weight monitoring Related to Bod y mass index (BMI) 34.0-34.9, adult Immobilize as directed. Related to Shoulder bursitis, left Elevate extremity above heart. R elated to Shoulder bursitis, left Immobilize as directed. Related to Shoulder bursitis, left Immobilize as directed. Related to Bursitis of shoulder Apply ice as tolerated. Related to Bursitis of shoulder Elevate extremity above heart. R elated to Bursitis of shoulder Advance activity as tolerated Discussed post op care/precautio ns Advance PT for active ROM/streng th schedule physical therapy Discussed post op care/precautio ns Follow exercise program Assessments Type Assessment Date assessment Arthrosis of left midfoot assessment Body mass index (BMI) 35.0-35.9, adult Patient Care Teams Name Effective Dates (start - stop) Status Members No Information
--- OUTSIDE RECORDS SUMMARY | 2024-10-03 07:49 | XMS_ITS | Encounter Summary ---
Author Organization [facility] Address [address] [place] [address] Care Team Providers Care Expanding Machine Operator Name Role Phone Itzel Cook MD Primary Care Provider [phone] Encounter Details Date Type Department Care Team (Latest Contact Info) Description 12/08/2005 Inpatient Historical [facility] Charlie German MD [address] [facility] [facility] [address] [place] [address] Osteoarth NOS-Pelvis (Primary Dx) Social History Tobacco Use Types Packs/Day Years Used Date Smoking Tobacco: Never Assessed Sex and Gender Information Value Date Recorded Sex Assigned at Not on file Legal Sex Male 3:01 AM GREY PERCHER Gender Identity Not on file Sexual Orientation Not on file documented as of this encounter Plan of Treatment Not on file documented as of this encounter Procedures Procedure Name Priority Date/Time Associated Diagnosis Comments PROTIME-INR Routine 12/11/2005 5:40 AM CDT HEMOGLOBIN AND HEMATOCRIT Routine 12/10/2005 5:25 AM CDT PROTIME-INR Routine 12/10/2005 5:25 AM CDT HEMOGLOBIN AND HEMATOCRIT Routine 12/09/2005 5:40 AM CDT PROTIME-INR Routine 12/09/2005 5:40 AM CDT HEMOGLOBIN AND HEMATOCRIT Routine 12/08/2005 5:41 AM CDT documented in this encounter Results * PROTIME-INR (12/11/2005 5:40 AM CDT) PROTIME 14.9 12.7 - 15.1 Seconds INTERFACE SYSTEM INR 1.1 0.9 - 1.1 INTERFACE SYSTEM Comment: INR Therapeutic Range: Adult: 2.0 - 3.0 for pulmonary embolism or prophylaxis against venous thrombosis or systemic embolization. 2.0 - 3.0 for patients with tissue heart valves. 2.5 - 3.5 for patients with mechanical heart valves or post UT. Pediatric (12 years and under): 1.5 - 3.0 Although the target range in children is not well established , INR values of 1.5 - 3.0 are recommended for most patients. Higher values have been used in children with prosthetic cardiac valves and hereditary clotting disorders. (<3 days) therapeutic ranges have not been established. 12/11/2005 5:40 AM CDT Charlie German MD HEMATOLOGY ORDERABLES Final Resu lt INTERFACE SYSTEM Refer to clinic/hospital department * PROTIME-INR (12/10/2005 5:25 AM CDT) PROTIME 14.2 12.7 - 15.1 Seconds INTERFACE SYSTEM INR 1.0 0.9 - 1.1 INTERFACE SYSTEM Comment: INR Therapeutic Range: Adult: 2.0 - 3.0 for pulmonary embolism or prophylaxis against venous thrombosis or systemic embolization. 2.0 - 3.0 for patients with tissue heart valves. 2.5 - 3.5 for patients with mechanical heart valves or post UT. Pediatric (12 years and under): 1.5 - 3.0 Although the target range in children is not well established , INR values of 1.5 - 3.0 are recommended for most patients. Higher values have been used in children with prosthetic cardiac valves and hereditary clotting disorders. (<3 days) therapeutic ranges have not been established. 12/10/2005 5:25 AM CDT Charlie German MD HEMATOLOGY ORDERABLES Final Resu lt Performing Organization Address [facility] de Phone Number INTERFACE SYSTEM Refer to clinic/hospital department * (ABNORMAL) HEMOGLOBIN AND HEMATOCRIT (12/10/2005 5:25 AM CDT) HEMOGLOBIN 10.4(L) 13.6 - 16.5 g/dL INTERFACE SYSTEM HEMATOCRIT 30.0(L) 40.0 - 48.0 % INTERFACE SYSTEM 12/10/2005 5:25 AM CDT Charlie German MD HEMATOLOGY ORDERABLES Final Resu lt Performing Organization Address [facility] Phone Number INTERFACE SYSTEM Refer to clinic/hospital department * PROTIME-INR (12/09/2005 5:40 AM CDT) PROTIME 14.7 12.7 - 15.1 Seconds INTERFACE SYSTEM INR 1.1 0.9 - 1.1 INTERFACE SYSTEM Comment: INR Therapeutic Range: Adult: 2.0 - 3.0 for pulmonary embolism or prophylaxis against venous thrombosis or systemic embolization. 2.0 - 3.0 for patients with tissue heart valves. 2.5 - 3.5 for patients with mechanical heart valves or post UT. Pediatric (12 years and under): 1.5 - 3.0 Although the target range in children is not well established , INR values of 1.5 - 3.0 are recommended for most patients. Higher values have been used in children with prosthetic cardiac valves and hereditary clotting disorders. (<3 days) therapeutic ranges have not been established. 12/09/2005 5:40 AM CDT Charlie German MD HEMATOLOGY ORDERABLES [facility] Organization Address [facility] de Phone Number INTERFACE SYSTEM Refer to clinic/hospital department * (ABNORMAL) HEMOGLOBIN AND HEMATOCRIT (12/09/2005 5:40 AM CDT) HEMOGLOBIN 10.4(L) 13.6 - 16.5 g/dL INTERFACE SYSTEM HEMATOCRIT 30.0(L) 40.0 - 48.0 % INTERFACE SYSTEM 12/09/2005 5:40 AM CDT Charlie German MD HEMATOLOGY ORDERABLES Final Resu lt Performing Organization Address City/[facility] de Phone Number INTERFACE SYSTEM Refer to clinic/hospital department * (ABNORMAL) HEMOGLOBIN AND HEMATOCRIT (12/08/2005 5:41 AM CDT) HEMOGLOBIN 13.6 13.6 - 16.5 g/dL INTERFACE SYSTEM HEMATOCRIT 38.2(L) 40.0 - 48.0 % INTERFACE SYSTEM 12/08/2005 5:41 AM CDT Charlie German MD HEMATOLOGY ORDERABLES Final Resu Performing Organization Address [facility] Phone Number INTERFACE SYSTEM Refer to clinic/hospital department documented in this encounter Visit Diagnoses Diagnosis Osteoarthrosis, unspecified whether generalized or localized, pelvic region and thigh- Primary documented in this encounter Care Teams Expanding Machine Operator Relationship Specialty Start Date End Date Itzel Cook MD [address] [phone] PCP - General 05/22/15 documented as of this encounter
--- OUTSIDE RECORDS SUMMARY | 2024-10-03 07:49 | XMS_ITS | Clinical Summary ---
Author Organization [facility] Address [facility] [place] [address] Care Team Providers Care Sole Stainer Name Role Phone Sukhdev Mtz MD Primary Care Provider [phone]- [phone] Calvin Pitt MD Unavailable Allergies No known active allergies Medications acetaminophen 325 MG tablet Take 650 mg by mouth every 6 (six) hours as needed. Active Lactobacillus Acid-Pectin (ACIDOPHILUS/PE CTIN) capsule Take 1 tablet by mouth daily. Active vitamin D3, cholecalciferol , 5000 UNITS capsule Take 5,000 Units by mouth daily. Active coenzyme Q-10 (CO Q-10) 100 MG capsule Take 100 mg by mouth daily. Active cyclobenzaprine 10 MG tablet Take 1 tablet (10 mg total) by mouth 2 (two) times daily as needed. Active etodolac 500 MG tablet Take 1 tablet by mouth every 12 (twelve) hours. Active glucosamine-cho ndroitin 500-400 MG Cap Take 1 capsule by mouth daily. Active HYDROcodone-osiris taminophen 10-325 MG tablet Take 1 tablet by mouth every 6 (six) hours as needed. Active Multiple Vitamin (DAILY VITES) Tab Take 1 tablet by mouth daily. Active fish oil (OMEGA-3 FATTY ACID) 1000 MG Cap capsule Take 2,000 mg by mouth daily. Active Selenium 200 MCG Tab Take 200 mg by mouth daily. Active Trace Minerals Cr-Cu-Mn-Zn (TRACE ELEMENTS 4/PEDIATRIC) 8-982-07-500 MCG/ML Solution Acti ve ASPIRIN EC 81 MG tablet Take 81 mg by mouth daily. 10/29/2021 Active vitamin B-12 (CYANOCOBALAMIN ) (CYANOCOBALAMIN ) 1000 mcg tablet Take 1 tablet (1,000 mcg total) by mouth daily. Active rosuvastatin (CRESTOR) 20 MG tablet take 1 tablet by mouth nightly at bedtime 90 tablet 1 02/19/2024 Active nitroglycerin (NITROSTAT) 0.[address] 1 TABLET (O.4 MG TOTAL) UNDER THE TONGUE EVERY 5 (FIVE) MINUTES NEEDED FOR CHEST PAIN. MAXIMUM OF 3 DOSES. CALL 911 IF TAKING THE THIRD DOSE 25 tablet 1 03/25/2024 Active metoprolol succinate ER (TOPROL-XL) 100 MG 24 hr tablet TAKE 1 TABLET (100 MG TOTAL) BY MOUTH DAILY. NEW DOSE 90 tablet 3 09/02/2024 Active Active Problems Problem Noted Date Diagnosed Date Primary hypertension 03/28/2022 Chronic total occlusion of [place] coronary arter y 10/18/2021 Mixed hyperlipidemia 08/24/2021 Coronary artery disease of n ative artery of [place] heart with stable angina pectoris 08/24/2021 Bicuspid aortic valve with a scending aorta 4.0 to 4.5 cm in diameter 08/24/2021 Heart murmur Resolved Problems Problem Noted Date Diagnosed Date Resolved Date Cardiovascular stress test abnormal 10/18/2021 03/28/2022 Gastroesophageal reflux disease 08/24/2021 02/15/2022 Aortic valve stenosis 2021 Encounters Date Type Department Care Team Description 08/08/2024 Abstract [facility] [address] [address] Zara Uriarte MA 08/06/2024 10:00 AM DIORAMA MODEL MAKER Office Visit [facility] [address] [address] Alex Boss MD Follow Up (6 months); Coronary Artery Disease; Aortic Valve Stenosis 08/06/2024 Travel from Last 3 Months Immunizations Immunization Administration Dates Next Due Dtap (Acel-Immune) 02/28/2011 Influenza (Generic) 02/26/2014,04/15/2013,2009 Influenza Adult (Generic) 03/12/2018,03/30/2015 Family History Relation Status Comments Brother Alive Father (Age 66) Mother (Age 75) Sister (Age 64) Social History Tobacco Use Types Packs/Day Years Used Date Smoking Tobacco: Never Smokeless Tobacco: Never Tobacco Cessation:Counseling Given: Not Answered Alcohol Use Standard Drinks/Week Comments Yes 0 (1 standard drink = 0.6 oz pur e alcohol) Sex and Gender Information Value Date Recorded Sex Assigned at Male 08/06/2024 10:07 AM DIORAMA MODEL MAKER Legal Sex Male 6:17 PM CDT Gender Identity Not on file Sexual Orientation Not on file 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 Not on file Not on file Not on file Last Filed Vital Signs Vital Sign Reading Time Taken Comments Blood Pressure 128/86 08/06/2024 10:19 AM DIORAMA MODEL MAKER Pulse 61 08/06/2024 10:19 AM DIORAMA MODEL MAKER Temperature 36.4 C (97.5 F) 01/14/2022 7:34 AM CDT Respiratory Rate 20 03/30/2022 9:29 AM CDT Oxygen Saturation 95% 08/06/2024 10:19 AM DIORAMA MODEL MAKER Inhaled Oxygen Concentration - - Weight 135.2 kg (298 lb) 08/06/2024 10:19 AM DIORAMA MODEL MAKER Height 193 cm (6' 4 ) 08/06/2024 10:19 AM DIORAMA MODEL MAKER Body Mass Index 36.27 08/06/2024 10:19 AM DIORAMA MODEL MAKER Plan of Treatment Upcoming Encounters Date Type Department Care Team (Late st Contact Info) Description 08/11/2025 8:30 AM CDT Office Visit [facility] [address] [place], [place] [id number] Akilah Stevenson, ANP-BC [facility]. [facility] [address] [place] [address] Health Maintenance Due Date Last Done Comments Colorectal Cancer Screening Colonoscopy (10 Years) 1962 Annual Physical 1965 Hepatitis C 1980 Pneumococcal Vaccine: 50+ Years (1 of 2 - PCV) 1981 Zoster Vaccines (1 of 2) 2012 DTaP, Tdap and Td Vaccines ( 2 - Tdap) 02/28/2021 02/28/2011 RSV Immunization or 60+ Years (1 - Risk 60-74 years 1-dose series) 2022 COVID-19 Vaccine (3 - 2023-2 5 season) 2024 02/16/2021, 01/26/2021 Meningococcal B Vaccine Aged Out No l onger eligible based on patient's age to complete this topic Meningococcal Vaccine Aged Out No rommel lesli eligible based on patient's age to complete this topic RSV Immunizations Under 20 Months Aged Out No longer eligible b ased on patient's age to complete this topic Medical Devices Implanted Type Area Falafel Cart Cook Device Identifier Shelf Expiration Date Model / Serial / Lot Cv Orsiro 2.25mm X 18mm Donovan Prox Om2-01/14/2022 Implanted:01/14 by Andreas Greer MD (Quantity not on file) Stent Coronary [employer] 06/30/2023 [id number] / / [id number] Insurance [facility] Advance Directives * Full Code (Latest Code Status on File) Date Activated Date Inactivated Comments 01/14/2022 11:28 AM 01/14/2022 4:34 PM Care Teams Sole Stainer Relationship Specialty Start Date End Date Sukhdev Mtz MD PCP - General FAMILY PRACTICE 08/06/21 Calvin Pitt MD [address] [facility] [address] [place] [address] CARDIOVASCULAR DISEASE 09/16/21
--- OUTSIDE RECORDS SUMMARY | 2024-10-03 07:49 | XMS_ITS | Encounter Summary ---
Author Organization [facility] Address [address] [place] [address] Care Team Providers Care Agriculture Research Director Name Role Phone Itzel Cook MD Primary Care Provider +1- [phone] Encounter Details Date Type Department Care Team (Late st Contact Info) Description 12/23/2005 Outpatient Historical [facility] Charlie German MD [address] [facility] [address] [place] [phone] Social History Tobacco Use Types Packs/Day Years Used Date Smoking Tobacco: Never Assessed Sex and Gender Information Value Date Recorded Sex Assigned at Not on file Legal Sex Male 3:01 AM TALENT ACQUISITION ADMINISTRATOR Gender Identity Not on file Sexual Orientation Not on file documented as of this encounter Plan of Treatment Not on file documented as of this encounter Visit Diagnoses Not on filedocumented in this encounter Care Teams Agriculture Research Director Relationship Specialty Start Date End Date Itzel Cook MD [address] [phone] PCP - General 05/22/15 documented as of this encounter
--- OUTSIDE RECORDS SUMMARY | 2024-10-03 07:49 | XMS_ITS | Referral Summary ---
Author Organization [address] Address [address] [place] [address] Care Team Providers Care Technology Manager Name Role Phone Sukhdev Mtz MD Primary Care Provider [phone] Charlie German MD Unavailable [phone] Allergies No known active allergies Medications etodolac (LODINE) 500 mg tabletIndicatio ns:Osteoarthrit is Take 1 tablet (500 mg total) by mouth 3 (three) times a day 11/25/2010 Active cyclobenzaprine (FLEXERIL) 10 mg tablet Take 1 tablet (10 mg total) by mouth 2 (two) times a day as needed for muscle spasms 07/08/2019 Active acetaminophen (TYLENOL) 325 mg tablet Take 2 tablets (650 mg total) by mouth every 6 (six) hours as needed for pain Active traMADoL (ULTRAM) 50 mg tablet Take 1 tablet (50 mg total) by mouth every 6 (six) hours Active HYDROcodone-osiris taminophen (NORCO) 10-325 mg per tabletIndicatio ns:Pain Take 1 tablet by mouth every 6 (six) hours as needed for pain Active multivitamin capsule Take 1 capsule by mouth daily Active omega-3 fatty acids 1,000 mg capsule Take 2,000 mg by mouth daily Active coenzyme Q10 100 mg capsule Take 1 capsule (100 mg total) by mouth daily Active turmeric (CURCUMIN MISC) 400 mg daily A ctive cholecalciferol (VITAMIN D-3) 5,000 unit capsule Take 1 capsule (5,000 Units total) by mouth daily Active glucosamine-cho ndroitin 500-400 mg tablet Take 1 tablet by mouth 3 (three) times a day Active trace elements ped Cr-Cu-Mn-Zn (Trace Elements 4/Pediatric) 1 mcg-0.1 mg-30 mcg-0.5 mg/mL solution Active vitamin B complex capsule Take 1 capsule by mouth daily Active selenium 200 mcg tablet Take 1,000 tablets (200,000 mcg total) by mouth daily Active acidophilus-pec tin, citrus 100 million cell-10 mg capsule Take 1 tablet by mouth daily Active metoprolol tartrate (LOPRESSOR) 25 mg immediate release tabletIndicatio ns:Frequent PVCs Take 1 tablet (25 mg total) by mouth 2 (two) times a day 60 tablet 11 06/28/2021 Active rosuvastatin (CRESTOR) 40 mg tablet Take 1 tablet (40 mg total) by mouth daily 08/03/2021 Active aspirin 81 mg enteric coated tablet Take 1 tablet (81 mg total) by mouth daily Active Active Problems Problem Noted Date Diagnosed Date Ankle arthritis 06/03/2020 Overview (06/03/2020): Added automatically from request for surgery [id number] Social History Tobacco Use Types Packs/Day Years Used Date Smoking Tobacco: Never Smokeless Tobacco: Never Alcohol Use Standard Drinks/Week Comments Yes 2 (1 standard drink = 0.6 oz pur e alcohol) AUDIT-C Answer Date Recorded Q1: How often do you have a drink containing alc ohol? 2-4 times a month 09/23/2021 Q2: How many drinks containi ng alcohol do you have on a typical day when you are drinking? 3 or 4 09/23/2021 Q3: How often do you have si x or more drinks on one occasion? Never 09/23/2021 Sex and Gender Information Value Date Recorded Sex Assigned at Not on file Legal Sex Male 11:23 PM STAPLING MACHINE OPERATOR Gender Identity Male 05/25/2021 7:53 AM STAPLING MACHINE OPERATOR Sexual Orientation Straight 05/25/2021 7: 53 AM STAPLING MACHINE OPERATOR Last Filed Vital Signs Vital Sign Reading Time Taken Comments Blood Pressure 141/115 10/22/2021 8:54 AM CDT Pulse 88 10/22/2021 8:54 AM CDT Temperature 36.5 C (97.7 F) 10/22/2021 8:17 AM CDT Respiratory Rate 20 10/22/2021 8:17 AM CDT Oxygen Saturation 95% 10/22/2021 8:54 AM CDT Inhaled Oxygen Concentration - - Weight 136.1 kg (300 lb) 06/03/2024 8:45 AM STAPLING MACHINE OPERATOR stated Height 193 cm (6' 4 ) 06/03/2024 8:45 AM STAPLING MACHINE OPERATOR Body Mass Index 36.52 06/03/2024 8:45 AM STAPLING MACHINE OPERATOR Plan of Treatment Not on file Medical Devices Implanted Type Area Director Cardiovascular Device Identifier Shelf Expiration Date Model / Serial / Lot Orthohelix [id number] Maxtorque 5.5mm 55mm Cannulated Self Drill Foot Ankle Short - Sna - [id number] Implanted:Qty: 1 on 07/13/2020 by Alberto Dinero MD at [facility] Screw Left: Ankle Orthohelix MSD-010-55- [id number] / NA / Orthohelix [id number] Maxtorque 5.5mm 60mm Cannulated Self Drill Foot Ankle Short - Sna - [id number] Implanted:Qty: 1 on 07/13/2020 by Alberto Dinero MD at [facility] Screw Left: Ankle Orthohelix MSD-010-55- [id number] / NA / Explanted Type Area Director Cardiovascular Device Identifier Shelf Expiration Date Model / Serial / Lot Orthohelix 1.9 Guidewire Explanted:Qty: 3 on 07/13/2020 by Alberto Dinero MD at [facility] Wire Left: Ankle [employer] CSS-040-1 9 / NA / Description:USED FOR TEMPORA RY FIXATION *SEE SUPPLY SCREEN FOR CHARGE KV [employer] 1624-113 Catherine 3/32in 9in 2 Trocar Pin Fixation - [id number] Explanted:Qty: 2 on 07/13/2020 by Alberto Dinero MD at [facility] Left: Ankle [employer] [id number] 09/28/2022 1624-109 / / [id number] Insurance ANTHEM ACCESS CHOICE ANTHEM ACCESS CHOICE Care Teams Technology Manager Relationship Specialty Start Date End Date Sukhdev Mtz MD PCP - General Family Medicine 08/13/19 Charlie German MD [address] [place] [address] Surgeon Orthopedic Surgery 03/13/20
--- OUTSIDE RECORDS SUMMARY | 2024-10-03 07:49 | XMS_ITS | Encounter Summary ---
Author Organization [facility] Address [address] [place] [address] Care Team Providers Care Mold Yard Crane Operator Name Role Phone Sukhdev Mtz MD Primary Care Provider [phone] Calvin Pitt MD Unavailable Encounter Details Date Type Department Care Team (Late Contact Info) Description 08/08/2024 Abstract [facility] [address] [place], [place] [id number] Zara Uriarte MA Social History Tobacco Use Types Packs/Day Years Used Date Smoking Tobacco: Never Smokeless Tobacco: Never Alcohol Use Standard Drinks/Week Comments Yes 0 (1 standard drink = 0.6 oz pur e alcohol) Sex and Gender Information Value Date Recorded Sex Assigned at Male 08/06/2024 10:07 AM 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 [address] [place], [place] [id number] documented as of this encounter Procedures Procedure Name Priority Date/Time Associated Diagnosis Comments COMPREHENSIVE METABOLIC PANEL Routine 11/16/2023 LIPID PANEL Routine 11/16/2023 documented in this encounter Results * COMPREHENSIVE METABOLIC PANEL (11/16/2023) SODIUM S/P/B 140 GLUCOSE 130 mg/dL AST 24 BUN 19 CREATININE S/P/B 1.0 0.7 - 1.3 CALCIUM S/P/B 9.0 POTASSIUM S/P/B 4.1 CHLORIDE S/P/B 104 ALT 27 GFR ESTIMATE 86 us Default History Genericprovider LABORATORY Final Result * LIPID PANEL (11/16/2023) CHOLESTEROL 136 TRIGLYCERIDES 174 HDL 45 LDL (CALCULATED) 66 NON HDL CHOLESTEROL 91 us Default History Genericprovider LABORATORY Final Result documented in this encounter Visit Diagnoses Not on filedocumented in this encounter Care Teams Mold Yard Crane Operator Relationship Specialty Start Date End Date Sukhdev Mtz MD PCP - General FAMILY PRACTICE 08/06/21 Calvin Pitt MD [address] [facility] [address] [place] [address] CARDIOVASCULAR DISEASE 09/16/21 documented as of this encounter
--- OUTSIDE RECORDS SUMMARY | 2024-10-03 07:49 | XMS_ITS | Encounter Summary ---
Author Organization [facility] Address [address] [place] [address] Care Team Providers Care Router Operator Pin Name Role Phone Sukhdev Mtz MD Primary Care Provider [phone] Calvin Pitt MD Unavailable Encounter Details Date Type Department Care Team (Late st Contact Info) Description 01/11/2022 Hospital Orders Only [facility] Lab Pre/Post [address] [place] [address] Andreas Greer MD Social History Tobacco Use Types Packs/Day Years Used Date Smoking Tobacco: Never Smokeless Tobacco: Never Alcohol Use Standard Drinks/Week Comments Yes 0 (1 standard drink = 0.6 oz pur e alcohol) Sex and Gender Information Value Date Recorded Sex Assigned at Male 08/06/2024 10:07 AM 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 No / Unsure 01/14/2022 7:14 AM CDT documented as of this encounter Functional Status * Calculated C-SSRS Risk Score (Lifetime/Recent) Answer Date of Assessment Author Status No Risk Indicated 01/14/2022 7:35 AM CDT Teresa Robles sa, RN Active * [place] Suicide Severity Rating Scale (Screener/Recent Self-Report) Question Answer Date of Assessment Author Status 1. Wish to be (Past 1 Month) No 01/14/2022 7:35 AM CDT Liberty Robles, RN Act anthony 2. Non-Specific Active Suicidal Thoughts (Past 1 Month) No 01/14/2022 7:35 AM CDT Liberty Robles, RN Act anthony 6. Suicidal Behavior (Lifetime) No 01/14/2022 7:35 AM CDT Liberty Robles, RN Act anthony documented as of this encounter Plan of Treatment Upcoming Encounters Date Type Department Care Team (Late st Contact Info) Description 08/11/2025 8:30 AM CDT Office Visit [facility] [place] [address] [place] [address] Akilah Stevenson ANP- [facility]. [address] [place] [address] documented as of this encounter Visit Diagnoses Not on filedocumented in this encounter Care Teams Router Operator Pin Relationship Specialty Start Date End Date Sukhdev Mtz MD PCP - General FAMILY PRACTICE 08/06/21 Calvin Pitt MD [address] [place] [address] [place] [address] CARDIOVASCULAR DISEASE 09/16/21 documented as of this encounter
--- OUTSIDE RECORDS SUMMARY | 2024-10-03 07:49 | XMS_ITS | Encounter Summary ---
Author Organization [facility] Address [address] [place] [address] Care Team Providers Care Head Of Visual Merchandising Name Role Phone Itzel Cook MD Primary Care Provider [phone] Encounter Details Date Type Department Care Team (Latest Contact Info) Description 11/21/2005 Outpatient Historical [facility],DONOR ROOM Charlie German MD [address] [facility] [address] [place] [id number] Laboratory Examination (Primary Dx) Social History Tobacco Use Types Packs/Day Years Used Date Smoking Tobacco: Never Assessed Sex and Gender Information Value Date Recorded Sex Assigned at Not on file 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
--- OUTSIDE RECORDS SUMMARY | 2024-10-03 07:49 | XMS_ITS | Clinical Summary ---
Author Organization [address] Address [address] [place] [address] Care Team Providers Care Design Inserter Name Role Phone Sukhdev Mtz MD Primary Care Provider [phone] Charlie German MD Unavailable [phone] Allergies No known active allergies Medications [...] (06/03/2020): Added automatically from request for surgery [id number] Surgical History Surgery Date Site/Laterality Comments ROTATOR CUFF REPAIR 06/05/2012 - 06/04/2013 Left ANKLE FRACTURE SURGERY 06/05/1998 - 06/04/1999 Left TOTAL HIP ARTHROPLASTY 06/05/2003 - 06/04/2004 Left TOTAL HIP ARTHROPLASTY 06/05/2006 - 06/04/2007 Right ROTATOR CUFF REPAIR 06/05/2014 - 06/04/2015 Right KNEE ARTHROSCOPY 06/05/2000 - 06/04/2001 Right COLONOSCOPY 06/05/2011 - 06/04/2012 Medical History Medical History Date Comments ADHD (attention deficit hyperactivity disorder) Anxiety Arthritis Depression Gout Obesity Heart murmur Bicuspid aortic valve Coronary artery disease Family History Medical History Relation Name Comments Arthritis Father Cancer Father Hypertension Father Spondylolisthesis Father Parkinsonism Mother Anesthesia problems Neg Hx Relation Name Status Comments Father Mother Social History Tobacco Use Types Packs/Day Years [...] on file Legal Sex Male 11:23 PM DRIER TENDER NAPHTHALENE Gender Identity Male 05/25/2021 7:53 AM DRIER TENDER NAPHTHALENE Sexual Orientation Straight 05/25/2021 7: 53 AM DRIER TENDER NAPHTHALENE Obstetrics History Last Filed Vital Signs Vital Sign Reading Time Taken Comments Blood Pressure 141/115 10/22/2021 8:54 AM CDT Pulse 88 10/22/2021 8:54 AM CDT Temperature 36.5 C (97.7 F) 10/22/2021 8:17 AM CDT Respiratory Rate 20 10/22/2021 8:17 AM CDT Oxygen Saturation 95% 10/22/2021 8:54 AM CDT Inhaled Oxygen Concentration - - Weight 136.1 kg (300 lb) 06/03/2024 8:45 AM DRIER TENDER NAPHTHALENE stated Height 193 cm (6' 4 ) 06/03/2024 8:45 AM DRIER TENDER NAPHTHALENE Body Mass Index 36.52 06/03/2024 8:45 AM DRIER TENDER NAPHTHALENE Plan of Treatment Health Maintenance Due Date Last Done Comments Colon Cancer Screening-Colonoscopy 1962 Depression Screening 1962 Hepatitis C Screening 1962 Prostate Cancer Screening-PSA 1962 Hepatitis B Screening 1980 Regular Well Visit/Exam 18-64 1980 Zoster Vaccine (1 of 2) 2012 DTaP/Tdap/Td Vaccine (2 - Tdap) 02/28/2021 02/28/2011 Influenza Vaccine (#1) 2024 8, 03/30/2015, 02/26/2014, Additional history exists Pneumococcal vaccine <65 Aged Out No longer eligible based on patient's age to complete this topic Medical Devices Implanted Type Area Cigar Head Pegger Device Identifier Shelf Expiration Date Model / Serial / Lot Orthohelix [id number] Maxtorque 5.5mm 55mm Cannulated Self Drill Foot Ankle Short - Sna - [id number] Implanted:Qty: 1 on 07/13/2020 by Alberto Dinero MD at [facility] Screw Left: Ankle Orthohelix MSD-010-55- 055S / NA / Orthohelix [id number] Maxtorque 5.5mm 60mm Cannulated Self Drill Foot Ankle Short - Sna - [id number] Implanted:Qty: 1 on 07/13/2020 by Alberto Dinero MD at [facility] Screw Left: Ankle Orthohelix MSD-010-55- 060S / NA / Explanted Type Area Cigar Head Pegger Device Identifier Shelf Expiration Date Model / Serial / Lot Orthohelix 1.9 Guidewire Explanted:Qty: 3 on 07/13/2020 by Alberto Dinero MD at [facility] Wire Left: Ankle [employer] CSS-040-1 9 / NA / Description:USED FOR TEMPORA RY FIXATION *SEE SUPPLY SCREEN FOR CHARGE KV [employer] 1624-048 Catherine 3/32in 9in 2 Trocar Pin Fixation - [id number] Explanted:Qty: 2 on 07/13/2020 by Alberto Dinero MD at [facility] Left: Ankle [employer] [id number] 09/28/2022 1624-109 / / [id number] Insurance [facility] ACCESS CHOICE Member Subscriber Plan / Payer (Ef fective 2019-Present) Name:Krzysztof Tovar Relation to Subscriber:Self Name:Krzysztof Tovar Payer ID:[id number] ([facility]) Type: [employer] Address: [facility] [address] [place] [address] BLUE ACC CHOICE OOS ANTHEM ACCESS CHOICE Care Teams Design Inserter Relationship Specialty Start Date End Date Sukhdev Mtz MD PCP - General Family Medicine 08/13/19 Charlie German MD [address] [address] Surgeon Orthopedic Surgery 03/13/20
--- OUTSIDE RECORDS SUMMARY | 2024-10-03 07:49 | XMS_ITS | Continuity of Care Document ---
Author Organization [facility] Address [address] [place] [address] Phone Care Team Providers Care Supervisor Firearms Name Role Phone Gilles Islas MD Unavailable Unavailable Allergies, Adverse Reactions, Alerts Substance Reaction Status Criticality No Known Allergies Active No Inform ation Medications Medication Instructions Dosage Effective Dates (start - stop) Status Comments etodolac 500 mg tablet take 1 tablet by oral route 2 times every day with food 500 MG - Active zolpidem 5 mg tablet take 1 tablet by or al route every day at bedtime 5 MG - Active cyclobenzaprine 5 mg tablet take 1 tablet by oral route 3 times every day 5 MG - Active Procedures Procedure Date X-ray exam foot, minimum 3 views 2019 X-ray exam ankle, minimum 3 views Office[facility]patient [facility] 2019 Advance Directives Directive Yes / No Effective Date File Name No Information Encounters Encounter Description Practice Location Reason(s) For Visit Diagnoses Date Provider Providers Copied on Encounter Office/outpat ient visit,[place], [facility], [address], [place], [place], [id number], [place] tel:[phone] [facility] Pain Left Foot (chief complaint) Pain in left footPain in left ankleTraumatic arthropathy, left ankle and foot Chelsi Campoverde. [address], [place], [address], [place]. tel:[phone] Family History Family Member Type Diagnosis Age At Onset Sister Problem (finding) Depression Sister Problem (finding) Cancer, unknown Brother Problem (finding) Osteoarthritis Father Problem (finding) Cancer, unknown Father Problem (finding) Hypertension Brother Problem (finding) Gout Payers Payer name Insurance type Covered green party ID Misty pantoja(s) Minda Blue Cross Blue [place] BL [id number] Social History Type Description Quantity Date Captured Comments Alcohol Use Details Unknown Caffeine Use Details Unknown Tobacco Use Status No Information Smoking Status No Information Non-Smoking Tobacco Use Details : No Details Available : No Details Available Sex Male Vital Signs Date / Time: Height Weight BMI Pulse Rate Blood Pressure Temperature Respiratory Rate Body Surface Area Head Circumference Head Circ. Percentile Wt./Sunny. Percentile BMI percentile Pulse Ox Inhaled Ox 8:25 AM 76.00 in 117.934 kg (260.00 lbs) 31.6 5 kg/m eter (2) 2.51 meter(2) Chief Complaint And Reason For Visit From encounter dated '03/31/2020 09:00'. Pain Left Foot (chief complaint) Reason For Referral Reason For Referral No Information Plan Of Treatment Date Type Action Status Referral Ordered: X-ray exam ankle, minimum 3 views LT ankle ordered Referral Ordered: X-ray exam foot, minimum 3 views LT foot ordered History Of Present Illness Encounter Date Complaint History Of Prese nt Illness Pain Left Foot Functional Status Date Functional Assessmen t No Information Instructions Date Instruction Additional Infor mation No Information Assessments Type Assessment Date assessment Pain in left foot assessment Pain in left ankle assessment Traumatic arthropathy, left ankl e and foot Patient Care Teams Name Effective Dates (start - stop) Status Members No Information
--- OUTSIDE RECORDS SUMMARY | 2024-10-03 07:49 | XMS_ITS | Clinical Summary ---
Author Organization [facility] Address [address] [place] [address] Care Team Providers Care Addictions Therapist Name Role Phone Itzel Cook MD Primary Care Provider [phone] Allergies No known active allergies Medications etodolac (LODINE) 500 mg Oral tablet Take 500 mg by mouth 3 times daily. 11/25/2010 Active HYDROcodone-osiris taminophen (NORCO) 5-325 mg Oral tablet Take 1 Tab by mouth every 6 hours as needed. 11/25/2010 Active zolpidem (AMBIEN) 10 mg Oral tablet Take 10 mg by mouth nightly as needed. Active DULoxetine (CYMBALTA) 20 mg Oral CpDR Take 60 mg by mouth daily. 11/25/2010 Active multivitamin (DAILY-CHRISTIE) Oral tablet Take 1 Tab by mouth daily. Active omega-3 fatty acids-fish oil 300-1,000 mg Oral Cap Take 2 Caps by mouth 2 times daily. Active Qgnzs-JR1-JFQ-E LE-XW9-Fix-Astx (KRILL OIL) 1000-130(40-80) mg Oral Cap Take 1 Tab by mouth daily. Active glucosamine-cho ndroitin (ARTHX DS) 500-400 mg Oral Cap Take 1 Cap by mouth daily. Active coenzyme Q10 Oral Cap Take 60 mg by mouth daily. Active gabapentin (NEURONTIN) 300 mg Oral capsule Take 300 mg by mouth 3 times daily. Active oxyCODONE-aceta minophen (PERCOCET) 5-325 mg Oral tablet Take 1 Tab by mouth every 4 hours as needed for Pain or Pain, Severe. 50 Tab 0 12/24/2012 Active cephALEXin (KEFLEX) 500 mg Oral capsule Take 1 Cap by mouth 3 times daily. 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 Gender Identity Not on file Sexual Orientation Not on file Occupation Industry Job Start Date Job End Date Not on file Not on file Not on file Not on file Last Filed Vital Signs Vital Sign Reading Time Taken Comments Blood Pressure 133/77 12/24/2012 1:56 PM CDT Pulse 66 12/24/2012 1:56 PM CDT Temperature 36.3 C (97.4 F) 12/24/2012 1:56 PM CDT Respiratory Rate 18 12/24/2012 1:56 PM CDT Oxygen Saturation 100% 12/24/2012 1:56 PM CDT Inhaled Oxygen Concentration - - Weight 127.7 kg (281 lb 8 oz) 12/24/2012 8:06 AM CDT Height 193 cm (6' 4 ) 12/17/2012 9:36 AM CDT Body Mass Index 34.27 12/17/2012 9:36 AM CDT Plan of Treatment Health Maintenance Due Date Last Done Comments DTAP/TDAP/TD VACCINES (1 - Tdap) 1981 COLORECTAL SCREENING 2007 Colorectal Cancer Screening 2007 FIT-DNA Q 3 years 2007 FIT/FOBT Q 1 year 2007 Flex Sig/CT Colonography Q 5 years 2007 ZOSTER VACCINE (1 of 2) 2012 INFLUENZA VACCINE (#1) 2024 02/03/2010 RSV VACCINE (60+ or ) (1 - 1-dose 75+ series) 2037 Medical Devices Implanted Type Area Boiler Out Device Identifier Shelf Expiration Date Model / Serial / Lot Log [id number] - Shoulder Anchors - 1 - [place] Rotator Cuff Mitek [id number] Implanted:Qty : 3 on 12/02/2010 at [facility] [place] Left: Shoulder [employer] 04/24/2015 [id number] / / [id number] [place] Sut Crkscrw Biocmpst 5.5mm [id number] - [id number] Implanted:Qty : 1 on 12/24/2012 by Charlie German MD at [facility] [place] Right: Shoulder [employer] 09/30/2013 [id number] / / [id number] Insurance [facility] OPEN ACCESS HMO Advance Directives For more information, please contact: [phone] * Full Code (Latest Code Status on File) Date Activated Date Inactivated Comments 12/24/2012 12:40 PM 12/24/2012 3:59 PM * Full Code Date Activated Date Inactivated Comments 12/24/2012 8:09 AM 12/24/2012 12:40 PM * Full Code Date Activated Date Inactivated Comments 12/02/2010 2:59 PM 12/03/2010 4:32 PM * Full Code Date Activated Date Inactivated Comments 12/02/2010 1:10 PM 12/02/2010 2:59 PM Care Teams Addictions Therapist Relationship Specialty Start Date End Date Itzel Cook MD [address] [place] [phone] PCP - General 05/22/15
--- OUTSIDE RECORDS SUMMARY | 2024-10-03 07:49 | XMS_ITS | Encounter Summary ---
Author Organization [facility] Address 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
== END 2024-10-03 07:45 | disposition home or self-care (01) ==
PROVIDERS: PCP Family Medicine; Visit Provider Family Medicine
DX: R91.1 Solitary pulmonary nodule (principal)
CPT/HCPCS: 71250